=== PATIENT | female | born 1940 | race Caucasian/White ===

== ENCOUNTER 2020-08-18 14:02 | Inpatient (IN) | payer MEDICARE ==
[~2020-08-18] VITALS: Ht 172.7 cm; Wt 56.2 kg
--- NOTE | 2020-08-18 14:10 | NUR ---
Report received from EMS, pt changed into MD pio at bedside for exam with technical assistance consultant present for 12 lead EKG. IV started with labs drawn including BC x1 for possible SIRS/Sepsis candidate in the future. Waiting on registration with stickers to send labs.
[2020-08-18] MEDS ORDERED: ALBUTEROL/IPRATROPIUM 2.5MG/0.5MG, 3 ML NPPB ONE (14:30)
[2020-08-18] MEDS ORDERED: SODIUM CHLORIDE FLUSH 10ML SYR IVF ONE (14:30)
[2020-08-18] MEDS ORDERED: methylPREDNISolone SOD SUCC 125 MG/2 ML IV ONE (14:30)
[2020-08-18] MEDS ORDERED: ALBUTEROL/IPRATROPIUM 2.5MG/0.5MG, 3 ML ONE (14:53)
[2020-08-18 14:55] LABS: ALANINE AMINOTRANSFERASE 28 U/L (12-78); ALBUMIN 3.3 g/dL (3.4-5.0); ANION GAP 8 mmol/L (5-15); CALCIUM 8.4 mg/dL (8.5-10.1); CHLORIDE 89 mmol/L (98-107); CREATININE 2.06 mg/dL (0.55-1.02)
--- NOTE | 2020-08-18 14:55 | NUR ---
PCXR completed and all labs drawn and sent now. [facility] NPPB tx started at this time as ordered.
[2020-08-18 14:57] LABS: ALKALINE PHOSPHATASE 129 U/L (45-117); BILIRUBIN,TOTAL 0.8 mg/dL (0.2-1.0); TOTAL PROTEIN 7.5 g/dL (6.4-8.2)
--- NOTE | 2020-08-18 15:10 | NUR ---
Report given to meal break RN and care transferred.
[2020-08-18] MEDS ORDERED: methylPREDNISolone SOD SUCC 125 MG/2 ML ONE ×2 (15:13→15:16)
--- NOTE | 2020-08-18 15:25 | NUR ---
FLOAT RN: BREATHING TREATMENT DONE. VS STABLE. PT REFUSED SOLU-MEDROL. CALL LIGHT IN PLACE. WILL CONTINUE TO MONITOR WHILE PRIMARY RN IS ON BREAK
[2020-08-18] MEDS ORDERED: POTASSIUM CHLORIDE 40 MEQ in SODIUM CHLORIDE 0.9% 500 ML IV ONE (15:30)
[2020-08-18 15:35] LABS: RED CELL DISTRIBUTION WIDTH 13.6 % (9.6-15.2)
--- NOTE | 2020-08-18 15:37 | NUR ---
BREAK RN: DR DIGGS AWARE PT REFUSED MEDICATION. REPORT GIVEN TO NAVNEET LEDEZMA
--- NOTE | 2020-08-18 15:40 | NUR ---
Report received from meal break RN and care reassumed. Reported that pt refused steriods admin, that K+ came back low and that KCl IVF ordered from pharmacy and awaiting delivery for admin to pt at this time.
[2020-08-18 15:58] LABS: BASOPHILS % (AUTO) 1 % (0-1); EOSINOPHILS % (AUTO) 0 % (1-7); LYMPHOCYTES % (AUTO) 17 % (22-44); MEAN CORPUSCULAR HEMOGLOBIN 35.1 pg (27.0-34.8); MONOCYTES % (AUTO) 7 % (2-9); NEUTROPHILS % (AUTO) 74 % (42-75); RED BLOOD COUNT 4.24 x10^6/uL (3.82-5.3)
[2020-08-18 16:00] LABS: MD NO; MEAN PLATELET VOLUME 7.6 fL (7.4-10.4); PLATELET COUNT 194 x10^3/uL (130-400)
[2020-08-18] MEDS ORDERED: PLEASE ENTER ALLERGIES MC SCH (16:00)
[2020-08-18 16:01] LABS: MEAN CORPUSCULAR HGB CONC 36.1 g/dL (32.4-35.8)
[2020-08-18] MEDS ORDERED: CEFTRIAXONE PMX 1GM/50ML 50 ML ONE (16:48)
[2020-08-18] MEDS ORDERED: PHARMACY MAY ADJ FOR RENAL FX MC PRN (17:00)
[2020-08-18] MEDS ORDERED: SENNA/DOCUSATE TABLET PO PRN (17:00)
[2020-08-18] MEDS ORDERED: ACETAMINOPHEN 325 MG TABLET PO PRN (17:00)
[2020-08-18] MEDS ORDERED: SODIUM CHLORIDE 0.9% 1,000 ML IV ONE (17:00)
[2020-08-18] MEDS ORDERED: POTASSIUM CHLORIDE 40 MEQ in SODIUM CHLORIDE 0.9% 100 ML IV ONE (17:00)
[2020-08-18] MEDS ORDERED: CEFTRIAXONE 1,000 MG in SODIUM CHLORIDE 0.9% 50 ML IVPB SCH (17:00)
[2020-08-18] MEDS ORDERED: D5%-0.45% NACL 1,000 ML IV SCH (17:00)
[2020-08-18] MEDS ORDERED: CEFTRIAXONE PMX 1GM/50ML 50 ML IV ONE (17:00)
[2020-08-18] MEDS: HEPARIN 5,000 UNITS/ML, 1ML SQ SCH (17:30)
[2020-08-18] MEDS ORDERED: THIAMINE 100MG TABLET PO ONE (17:30)
--- NOTE | 2020-08-18 17:34 | NUR ---
Kemar Hatfield primary contact [phone]
[2020-08-18] MEDS: DOXYCYCLINE 100 MG in DEXTROSE 5% 250 ML IV SCH ×2 (17:48→20:54)
--- NOTE | 2020-08-18 17:50 | NUR ---
Dinner tray brought in to room and set up. Pt able to feed herself without issue. Second abx started IVPB. Pt states she needs to be cleaned up when she is done with dinner. Call light in reach with instructions to call me when she is done eating so we can do that right away.
--- NOTE | 2020-08-18 18:14 | NUR ---
Report called to NAVNEET Mcdermott and pt readied for transport up to floor.
--- NOTE | 2020-08-18 18:26 | NUR ---
Pt brief changed and pericare completed prior to leaving dept for floor. Dinner eaten 100% with po fluids intake of 240mL noted. BP reassessed secondary to HTN noted while arm bent to eat earlier.
[2020-08-18 19:56] VITALS: BP 174/99
[2020-08-18] MEDS: DOXYCYCLINE 100MG CAP PO SCH (21:51)
[2020-08-18 22:11] LABS: BASOPHILS % (AUTO) 1 % (0-1); EOSINOPHILS % (AUTO) 1 % (1-7); LYMPHOCYTES % (AUTO) 19 % (22-44); MEAN CORPUSCULAR HEMOGLOBIN 34.9 pg (27.0-34.8); MEAN CORPUSCULAR HGB CONC 35.9 g/dL (32.4-35.8); MEAN PLATELET VOLUME 7.2 fL (7.4-10.4); MONOCYTES % (AUTO) 9 % (2-9); NEUTROPHILS % (AUTO) 72 % (42-75); PLATELET COUNT 135 x10^3/uL (130-400)
[2020-08-18 22:12] LABS: MD NO
[2020-08-18 22:23] LABS: ALANINE AMINOTRANSFERASE 25 U/L (12-78); ALBUMIN 2.9 g/dL (3.4-5.0); ANION GAP 9 mmol/L (5-15); CALCIUM 7.9 mg/dL (8.5-10.1); CHLORIDE 96 mmol/L (98-107); CREATININE 1.89 mg/dL (0.55-1.02)
[2020-08-18 22:25] LABS: ALKALINE PHOSPHATASE 124 U/L (45-117); BILIRUBIN,TOTAL 0.5 mg/dL (0.2-1.0); TOTAL PROTEIN 7.2 g/dL (6.4-8.2)
[2020-08-19 01:47] VITALS: BP 137/76
[2020-08-19] MEDS: HEPARIN 5,000 UNITS/ML, 1ML SQ SCH ×3 (01:49→17:18)
[2020-08-19] MEDS ORDERED: LACTATED RINGERS 1,000 ML IV SCH (07:00)
[2020-08-19 07:21] VITALS: BP 176/100
[2020-08-19 07:56] LABS: BASOPHILS % (AUTO) 1 % (0-1); EOSINOPHILS % (AUTO) 1 % (1-7); LYMPHOCYTES % (AUTO) 26 % (22-44); MEAN CORPUSCULAR HEMOGLOBIN 35.1 pg (27.0-34.8); MEAN CORPUSCULAR HGB CONC 35.9 g/dL (32.4-35.8); MEAN PLATELET VOLUME 8.1 fL (7.4-10.4); MONOCYTES % (AUTO) 7 % (2-9); NEUTROPHILS % (AUTO) 65 % (42-75); PLATELET COUNT 154 x10^3/uL (130-400); RED CELL DISTRIBUTION WIDTH 13.7 % (9.6-15.2)
[2020-08-19] MEDS ORDERED: POTASSIUM CHLORIDE 20 MEQ TAB.ER.PRT PO SCH (08:00)
[2020-08-19 08:04] LABS: MD NO
[2020-08-19 08:08] LABS: CALCIUM 8.4 mg/dL (8.5-10.1); CHLORIDE 95 mmol/L (98-107); CREATININE 1.67 mg/dL (0.55-1.02)
[2020-08-19 08:27] LABS: ANION GAP 9 mmol/L (5-15)
[2020-08-19] MEDS: CHOLECALCIFEROL 5,000u TAB PO SCH (09:00)
[2020-08-19] MEDS: DOXYCYCLINE 100MG CAP PO SCH ×2 (09:16→20:46)
[2020-08-19] MEDS: ZINC SULFATE 220 MG CAPSULE PO SCH (09:16)
[2020-08-19] MEDS: POTASSIUM CHLORIDE 20 MEQ TAB.ER.PRT PO SCH ×4 (09:16→20:46)
[2020-08-19] MEDS: ASCORBIC ACID 500 MG TABLET PO SCH ×2 (09:28→17:18)
[2020-08-19 11:45] VITALS: BP 172/98
[2020-08-19] MEDS ORDERED: hydrALAzine 20 MG/ML, 1ML IV PRN (13:00)
[2020-08-19] MEDS ORDERED: hydrALAzine 20 MG/ML, 1ML IV ONE (13:00)
[2020-08-19] MEDS: LOSARTAN 50MG TABLET PO SCH (13:10)
[2020-08-19 15:30] LABS: ANION GAP 9 mmol/L (5-15); CALCIUM 8.1 mg/dL (8.5-10.1); CHLORIDE 96 mmol/L (98-107); CREATININE 1.82 mg/dL (0.55-1.02)
[2020-08-19] MEDS ORDERED: MAGNESIUM SULFATE PMX 2GM/50ML 50 ML IV ONE (15:30)
[2020-08-19] MEDS ORDERED: CEFTRIAXONE PMX 1GM/50ML 50 ML IV SCH (16:30)
[2020-08-19] MEDS: DOXYCYCLINE 100 MG in DEXTROSE 5% 250 ML IV SCH (17:17)
[2020-08-19 17:27] VITALS: BP 145/84
[2020-08-19 18:51] VITALS: BP 105/68
[2020-08-19 20:37] LABS: ANION GAP 9 mmol/L (5-15); CALCIUM 7.9 mg/dL (8.5-10.1); CHLORIDE 96 mmol/L (98-107); CREATININE 1.89 mg/dL (0.55-1.02)
[2020-08-20 00:53] VITALS: BP 109/66
[2020-08-20] MEDS: HEPARIN 5,000 UNITS/ML, 1ML SQ SCH ×3 (01:30→08:21)
[2020-08-20 03:33] LABS: BASOPHILS % (AUTO) 1 % (0-1); EOSINOPHILS % (AUTO) 2 % (1-7); LYMPHOCYTES % (AUTO) 31 % (22-44); MEAN CORPUSCULAR HGB CONC 35.4 g/dL (32.4-35.8); MEAN PLATELET VOLUME 7.5 fL (7.4-10.4); MONOCYTES % (AUTO) 9 % (2-9); NEUTROPHILS % (AUTO) 57 % (42-75); PLATELET COUNT 156 x10^3/uL (130-400); RED BLOOD COUNT 3.94 x10^6/uL (3.82-5.3); RED CELL DISTRIBUTION WIDTH 13.9 % (9.6-15.2)
[2020-08-20 03:35] LABS: MD NO
[2020-08-20 03:40] LABS: ANION GAP 9 mmol/L (5-15); CALCIUM 8.1 mg/dL (8.5-10.1); CHLORIDE 99 mmol/L (98-107); CREATININE 1.79 mg/dL (0.55-1.02)
[2020-08-20] MEDS: DOXYCYCLINE 100 MG in DEXTROSE 5% 250 ML IV SCH (04:08)
[2020-08-20 08:08] VITALS: BP 153/82
[2020-08-20] MEDS: ZINC SULFATE 220 MG CAPSULE PO SCH (08:20)
[2020-08-20] MEDS: CHOLECALCIFEROL 5,000u TAB PO SCH (08:20)
[2020-08-20] MEDS: ASCORBIC ACID 500 MG TABLET PO SCH (08:20)
[2020-08-20] MEDS: DOXYCYCLINE 100MG CAP PO SCH (08:21)
[2020-08-20] MEDS: LOSARTAN 50MG TABLET PO SCH (08:21)
[2020-08-20 08:59] LABS: ANION GAP 7 mmol/L (5-15); CALCIUM 8.5 mg/dL (8.5-10.1); CHLORIDE 98 mmol/L (98-107); CREATININE 1.88 mg/dL (0.55-1.02)
[2020-08-20] MEDS ORDERED: DOXY100C2 PO (10:32)
[2020-08-20] MEDS ORDERED: CEFD300C37 PO (10:32)
[2020-08-20] MEDS ORDERED: AMLO-150 PO (10:32)
== END 2020-08-20 10:48 | disposition left against medical advice (07) | DRG 193 ==
LOC: SUATTDRO 16:53 → ED 17:21 → EDIP 17:52 → 4EST 18:56
PROVIDERS: ADMIT Hospitalist; ATTEND Hospitalist
DX: J18.9 Pneumonia, unspecified organism (principal); J96.01 Acute respiratory failure with hypoxia; N17.9 Acute kidney failure, unspecified; J44.0 Chronic obstructive pulmonary disease with (acute) lower respiratory infection; E87.1 Hypo-osmolality and hyponatremia; J44.1 Chronic obstructive pulmonary disease with (acute) exacerbation; E83.42 Hypomagnesemia; E86.0 Dehydration; Z53.29 Procedure and treatment not carried out because of patient's decision for other reasons; E87.5 Hyperkalemia; E87.6 Hypokalemia; I10 Essential (primary) hypertension; Z20.822 Contact with and (suspected) exposure to COVID-19; Z88.0 Allergy status to penicillin
CPT/HCPCS: 36415; 71045; 76770; 80048; 80053; 83605; 83735; 83880; 84100; 84145; 85025; 85379; 87040; 87070; 87205; 93005; 93970; 96365; 99285; G0378; J0696; J1644; J3480; J7060; J0360; J3475; J7030; J7040; J7120; U0003